=== PATIENT | female | born 1970 | race Caucasian/White ===

== ENCOUNTER 2018-03-22 08:45 | Emergency (ER) | payer MEDICAID, SELFPAY ==
[2018-03-22 08:52] VITALS: BP 112/85; PULSE 96; RESP 16; TEMP 37; O2SAT 99
[2018-03-22] MEDS: predniSONE 20 MG TAB 60 MG PO (09:31)
[2018-03-22] MEDS: Cyclobenzaprine 10 MG TAB PO (09:31)
[2018-03-22] MEDS: Lidocaine 5% Patch 1 PATCH TP (09:34)
[2018-03-22 09:36] LABS: Bilirubin Negative (Negative); Blood Negative (Negative); Clarity Clear; Glucose Negative (Negative); Ketones Negative (Negative); Leukocyte Esterase Trace (Negative); Nitrite Negative (Negative); Specific Gravity <= 1.005 (1.005-1.025); Urobilinogen 0.2 EU/dL (Up TO 0.2)
--- NOTE | 2018-03-22 09:42 | ED.GENADUL_ITS ---
Disposition Clinical Impression: Back pain Disposition: HOME Condition: Stable Instructions: Prednisone (By mouth), Cyclobenzaprine (By mouth), Lidocaine Patch (On the skin), Back Pain (ED) Additional Instructions: Please return immediately to the emergency department if you develop any new or worsening symptoms or if you become otherwise concerned. It is extremely important that you make an appointment to be seen by your primary care doctor within the next 1-2 weeks in follow-up for this visit. Prescriptions: Cyclobenzaprine [Flexeril] 5 mg PO TID PRN #12 tab PRN Reason: Discomfort Lidocaine 5% [Lidoderm 5% Patch] 1 each TP DAILY #9 patch Prednisone 50 mg PO DAILY #4 tablet Referrals: Bimal Dunne MD [[facility] STAFF PHYSICIAN] - Rodrigo Davis [Primary Care Provider] - Josse Jorgensen PT [PHYSICAL THERAPIST] - Medical Decision Making - Lab Data Negative per nursing. Laboratory Tests 03/22/18 09:20 Urine Color Yellow Urine Clarity Clear Urine pH 6.0 Ur Specific [place] <= 1.005 Urine Protein Negative Urine Ketones Negative Urine Blood Negative Urine Nitrite Negative Urine Bilirubin Negative Urine Urobilinogen 0.2 Ur Leukocyte Esterase Trace H Urine RBC 0-2 Urine WBC 10-20 Ur Epithelial Cells Few Urine Crystals Negative Urine Bacteria Many Urine Casts Negative Urine Mucus Negative Ur Culture Indicated? Yes Urine Glucose Negative Results reviewed for labs ordered during visit: Yes - Medical Decision Making Imani Sow is a 47-year-old woman with history of bipolar and no other reported major medical problems presenting to the emergency department complaining of acute worsening of chronic back pain in the past 4 days, radiating into the left leg and worse with movement. On exam patient is very well and nontoxic appearing. There is no motor or sensory deficit of the lower extremities. There is no saddle anesthesia. Diffuse tenderness of the lumbar area without bony or paraspinal focality. There are no risk factors for epidural hematoma or epidural abscess. Exam/history is not consistent with cauda equina syndrome or other cord compression, ovarian torsion, acute aortic etiology, intra-abdominal process, pyelonephritis. Concern for disc herniation versus muscle spasm/strain. Given recent urinary frequency, plan for UA and urine preg. Will obtain postvoid residual. P.o. steroids, p.o. Flexeril, Lidoderm patch. Postvoid residual 21 cc. UA shows white cells and trace leuk esterase without nitrates. Patient reports very mild increase in frequency. Will hold treating for UTI at this point and send culture. Urine negative. Plan for outpatient treatment with prednisone, Flexeril, and Lidoderm patch. Lengthy discussion with patient regarding return to emergency department precautions, prescription medication precautions, and importance of outpatient follow-up with PCP, physical therapy, and orthopedics. Patient is amenable to plan. Patient was placed on care management list for PCP follow-up within 1-2 weeks for reevaluation. History of Present Illness - General Chief complaint: Nk/Back Pain Stated complaint: BACK ACHE Time Seen by Provider: 03/22/18 08:59 Source: patient, RN notes reviewed Mode of arrival: wheelchair Limitations: no limitations - History of Present Illness Initial comments: Imani Sow is a 47-year-old woman with history of bipolar disorder and no other reported major medical problems presenting to the emergency department with back pain. Patient reports that she has had ongoing intermittent left- sided back pain that radiates into her left buttock and the back of her left leg over the past 6 months. She reports that she occasionally will tweak her back, and will have an acute worsening that improves after 1 or 2 days. Patient reports that she tweaked her back 4 days ago during a twisting motion, and has had a worsening of pain since that time. No improvement with Tylenol and ibuprofen at home. Patient reports that pain is worse in her left buttock and radiates into the back of her left thigh. She denies any weakness of the lower extremities or numbness/tingling of the lower extremities. She denies saddle anesthesia. She reports that she feels like she is urinating a little more frequently over the past week but otherwise no change in bladder function. No constipation or change in bowel function. She reports that she has had some very mild left pelvic pain that seems to be related to her back pain as it gets worse when she moves in concordance with her back pain. At rest she does not have any pelvic pain. Back pain is worse when moving from lying down to sitting or sitting to standing. Patient denies any history of IV drug use, no blood thinners. Reports that she is a current everyday smoker, denies alcohol or recreational drug use. No recent illnesses, no recent travel. Has been eating and drinking as usual. - Related Data Acetaminophen [Tylenol Extra Strength] 500 mg PO PRN 09/30/17 LamoTRIgine [LaMICtal] 100 mg PO DAILY tab-cap 09/30/17 QUEtiapine [SEROquel] 50 mg PO BID PRN 12/17/17 Cyclobenzaprine [Flexeril] 5 mg PO TID PRN #12 tab 03/22/18 Lidocaine 5% [Lidoderm 5% Patch] 1 each TP DAILY #9 patch 03/22/18 Prednisone 50 mg PO DAILY #4 tablet 03/22/18 Allergies Allergy/AdvReac Type Severity Reaction Status Date / Time codeine Allergy Intermediate HIVES Unverified 03/22/18 08:57 Review of Systems Constitutional: denies: fever Eyes: denies: eye pain ENT: denies: ear pain, throat pain, dental pain Respiratory: denies: cough, shortness of breath Cardiovascular: denies: chest pain Endocrine: denies: increased hunger, increased thirst Gastrointestinal: denies: abdominal pain, nausea, vomiting, diarrhea Musculoskeletal: back pain. denies: arthralgia, myalgia Skin: denies: rash Neurological: denies: headache, weakness, numbness Past Medical History - Past Medical History Medical history: no medical history. denies: diabetes Surgical history: - Social History Smoking status: current everyday smoker Alcohol use: none Drug use: none General Exam - General Limitations: no limitations General appearance: alert, other (Well and nontoxic appearing, conversing normally, appears uncomfortable with movement.) - Head Head exam: Present: atraumatic, normocephalic, normal inspection - Eye Eye exam: Absent: scleral icterus, conjunctival injection Pupils: Absent: irregular, unequal, miosis, mydriatic - ENT ENT exam: Present: mucous membranes moist - Neck Neck exam: Present: normal inspection - Respiratory Respiratory exam: Present: normal lung sounds bilaterally. Absent: respiratory distress - Cardiovascular Cardiovascular Exam: Present: regular rate, normal rhythm, normal heart sounds - GI/Abdominal GI/Abdominal exam: Present: soft, other (No pelvic tenderness to palpation). Absent: distended, tenderness, mass - Extremities Exam Extremities exam: Present: normal inspection. Absent: pedal edema, calf tenderness - Back Exam Back exam: Present: normal inspection, tenderness (Diffuse tenderness of the lumbar area, over the vertebrae and paraspinals bilaterally. There is no focality. There is no edema or overlying skin changes. No deformity or step- offs.). Absent: rash noted - Neurological Exam Neurological exam: Present: alert, normal gait (Slow but otherwise normal). Absent: altered, motor sensory deficit (Motor 5 out of 5 bilateral legs. Sensation intact bilateral legs.) - Psychiatric Psychiatric exam: Present: normal affect, normal mood - Skin Skin exam: Present: warm, dry, intact, normal color. Absent: rash Course Vital Signs - 24 hr 03/22/18 08:52 Temperature 37.0 C Pulse 96 H Respiratory 16 Rate Blood Pressure 112/85 Pulse Oximetry 99
[2018-03-22 09:46] LABS: Bacteria Many HPF (Negative); C & S Indicated? Yes; Casts Negative LPF (Negative); Crystals Negative HPF (Negative); Epithelial Cells Few HPF (Negative); Mucus Negative (Negative); RBC 0-2 (0-2)
[2018-03-22 09:59] VITALS: BP 112/78; PULSE 70; RESP 16; TEMP 36.8; O2SAT 97
[2018-03-22 10:09] VITALS: BP 112/78; PULSE 70; RESP 16; TEMP 36.8; O2SAT 97
--- NOTE | 2018-03-23 08:52 | PDOC.ERCMPRO ---
Care Management Progress Note 03/23-Dr. Phi Phelps requested assistance with a PCP (Susan) f/u in 1-2 weeks for back pain. Referral faxed to [facility] this am.
--- NOTE | 2018-03-23 09:00 | CMPROGNOTE_ITS ---
Care Management Progress Note 03/23-Dr. Phi Phelps requested assistance with a PCP (Susan) f/u in 1-2 weeks for back pain. Referral faxed to [facility] this am.
--- NOTE | 2018-03-26 07:46 | ED.FU.B_ITS ---
- Follow Up Follow Up Plan: 03/25/2018 --I received urine culture result noting > 100,000 Klebsiella pneumonia, sensitive to Bactrim. I called and spoke with the patient. She noted that she continued to have back pain. She denies dysuria but does note that she may have been urinating more than usual. Plan to start treatment with Bactrim for possible pyelonephritis. Plan discussed with the patient requests [facility] [place]. Prescription for Bactrim 1 tab twice daily 14 days called to pharmacy. Patient was encouraged to follow-up with her primary care physician and return to the ER should she have any worsening or new concerning symptoms. Patient verbalized understanding of plan and importance of completion of antibiotic course and timely outpatient follow-up.
== END 2018-03-22 10:09 | disposition home or self-care (01) ==
PROVIDERS: Emergency Provider Student in an Organized Health Care Education/Training Program; PCP Specialist/Technologist Athletic Trainer
DX: M54.5 Low back pain (principal); X50.9XXA Other and unspecified overexertion or strenuous movements or postures, initial encounter
CPT/HCPCS: 81025; 87077; 99283; 81003; 81015; 87086; 87186; J7512

== ENCOUNTER → 2018-04-06 01:28 | Outpatient (CLI) | payer MEDICAID, SELFPAY ==
--- NOTE | 2018-04-06 08:26 | DI.RAD_ITS ---
SYMPTOM/DIAGNOSIS: BACK PAIN WITH RADICULOPATHY M54.16 LUMBAR SPINE: Vertebral bodies are well maintained in height. There is mild disc space narrowing at L4-5 and L5-S1. There are small end plate osteophytes. No spondylolysis or spondylolisthesis seen. There is mild calcification in the aorta which is normal in diameter. IMPRESSION: Degenerative disc changes at L4-5 and L5-S1.
== END ==
LOC: DI 01:08 → ER 06-16 11:45 → DI 06-16 11:46
PROVIDERS: PCP Specialist/Technologist Athletic Trainer; Visit Provider Specialist/Technologist Athletic Trainer
DX: M54.16 Radiculopathy, lumbar region (principal); M54.5 Low back pain; M51.17 Intervertebral disc disorders with radiculopathy, lumbosacral region
CPT/HCPCS: 72110

== ENCOUNTER 2018-05-08 12:46 | Emergency (ER) | payer MEDICAID, SELFPAY ==
[2018-05-08 13:10] VITALS: BP 118/76; PULSE 80; RESP 16; TEMP 37; O2SAT 98
--- NOTE | 2018-05-08 13:49 | W.ED.GENAD ---
Discharge Plan Disposition Patient Disposition: HOME Condition: Stable Discharge Details Chief Complaint: DentalOral Clinical Impression: Dental infection, Left facial swelling Primary Care Provider: Rodrigo Davis ED Provider: Teressa Jones Home Meds and New Rx's Prescriptions: New penicillin V potassium 500 mg tablet 500 mg PO QID 7 Days Qty: 28 RF: 0 Continue acetaminophen [Tylenol Extra Strength] 500 MG tablet 1,000 mg PO PRN RF: 0 lamotrigine [Lamictal] 100 MG tablet 100 mg PO DAILY RF: 0 quetiapine [Seroquel] 50 MG tablet 50 mg PO BID PRNRF: 0 ibuprofen [Ibuprofen IB] 200 mg Tablet 400 mg PO PRN PRNRF: 0 Discharge Instructions Instructions: Dental Abscess (ED) Additional Instructions: You were given instructions regarding a dental abscess. You do not have a dental abscess noted on exam today but you were given instructions regarding signs to look for this. If you develop persistent fevers that do not improve with Motrin or Tylenol, if you are unable eat or drink, if you are unable to open or closure jaw or you have any other worsening or new concerning symptoms, return immediately to the emergency department. Follow-up with your scheduled appointment at [facility] on Thursday. Discharge Data Discharge Date/Time-TO BE ENTERED AT DEPARTURE: 05/08/18 14:50 Discharge Physician: Teressa Jones Medical Decision Making 48-year-old female presents with left upper dental pain times 2 weeks after fall downstairs hitting left upper tooth on cement causing a dental fracture, and with left-sided facial swelling and pain over the past 2 days. Admits to fever of 103 last night. Last dose of Tylenol Motrin 7 hours ago. She had also complained of intermittent cloudy vision in left eye as well as cramping in legs which she attributes to low potassium from not eating due to dental pain over the past few days. Vitals within normal limits. Patient afebrile now. Patient appears nontoxic and in no acute distress. She has majority of tooth missing and tenderness to palpation of base of tooth #10 or 11 without evidence of abscess. She has mild to moderate facial edema and tenderness of the infraorbital and maxillary region. No submandibular swelling, no, trismus, no drooling, no signs of arnaud's angina, no facial ecchymoses or signs of facial trauma. Normal external L eye exam. No pain with EOMI, PERRL. NV intact b/l LE. Moves all extremities spontaneously. Normal gait. Visual acuity OS 20/50, OD 20/40, OU 20/30. Suspect most likely dental infection but no obvious abscess. Her L eye visual symptoms may be due to mild L infraorbital swelling but there is no evidence of entrapment or orbital cellulitis and no meningeal signs. She states she is mainly concerned about a dental infection and wanting antibiotics. A dose of penicillin was given here. Patient was offered lab work and imaging but declines at this time. She has a follow-up appointment with [facility] on Thursday morning. She is instructed to keep this appointment for follow-up and to return immediately to the emergency department with any worsening or new concerning symptoms such as persistent fevers, inability to swallow, inability to open or close her jaw, or any other concerns. HPI General Mode of arrival: ambulatory. Date/Time Provider Initiated Documentation: 05/08/18 13:36. Limitations to Documentation: no limitations. Information obtained by: patient. HPI Narrative: Patient is a 48 old female who presents with dental pain times 2 weeks and left-sided facial swelling since yesterday. Patient states she fell down 3 stairs 2 weeks ago hitting her left upper jaw and tooth on a piece of cement, fracturing her left upper tooth. She states since then she has had some dental pain, and over the past day developed left-sided facial swelling and pain. She has been able to eat and drink. She states last night she had a temperature of 103. She states she last took Tylenol Motrin at 7 AM this morning, approximately 7 hours ago. States she feels like the swelling in the left side of her face is causing cloudy vision in her left eye. She also states of the past few days she has not eating or drinking much due to her dental pain and now feels like her legs are cramping like having low potassium. Past medical history: Bipolar disorder, anxiety Surgical history: Social history: Smokes tobacco, drinks beer, denies drugs Medications: See list Allergies: Codeine Related Data Home Medications Medication Instructions Recorded Confirmed acetaminophen [Tylenol Extra 1,000 mg PO PRN 09/30/17 05/08/18 Strength] lamotrigine [Lamictal] 100 mg PO DAILY tab-cap 09/30/17 05/08/18 quetiapine [Seroquel] 50 mg PO BID PRN 12/17/17 05/08/18 ibuprofen [Ibuprofen IB] 400 mg PO PRN PRN 05/08/18 05/08/18 penicillin V potassium 500 mg PO QID 7 Days #28 tab 05/08/18 Previous Rx's Medication Instructions Recorded penicillin V potassium 500 mg PO QID 7 Days #28 tab 05/08/18 Allergies Allergy/AdvReac Type Severity Reaction Status Date / Time codeine Allergy Intermediate HIVES Unverified 05/08/18 13:23 General Stated Complaint: DentalOral NOLAN: 3 Review of Systems Review of Systems All systems reviewed & are unremarkable except as noted in HPI and below Constitutional Denies chills, Denies excessive sweating, Denies fatigue, Denies fever(s), Denies weakness and Denies weight loss Eyes Reports system reviewed and no additional complaints, except as docu and Reports blurry vision ENT Reports dental pain, Denies vertigo, Denies dizziness, Denies otalgia, Denies nasal congestion, Denies sore throat and Denies throat swelling Cardiovascular Denies chest pain, Denies syncope, Denies rapid heart rate and Denies dyspnea Respiratory Denies dyspnea Gastrointestinal Denies abdominal pain, Denies diarrhea and Denies vomiting Genitourinary Denies hematuria, Denies dysuria and Denies flank pain Musculoskeletal Denies back pain and Denies joint swelling Integumentary/Breasts Denies lesions and Denies rash Neurologic Denies behavioral changes, Denies confusion, Denies vertigo, Denies dizziness, Denies syncope and Denies weakness Psychiatric Denies behavioral changes, Denies confusion and Denies depression Endocrine Denies excessive sweating and Denies fatigue Hematologic/Lymphatic Denies easy bruising and Denies lymphadenopathy Allergic/Immunologic Denies throat swelling PFSH Family History Mother Lung cancer Cancer of kidney Father Heart disease Myocardial infarction Grandfather Diabetes Medical History Anxiety Bipolar disorder Smoker Social History Smoking/Tobacco Use Status: Current-Occasional Surgical History section (10/27/13) Exam Const General: cooperative and healthy appearing Orientation: alert and awake [facility] Head: normal to inspection Ears: hearing grossly normal bilaterally, external ears normal and TM's normal bilaterally General nose exam: external nose normal Face and sinus: other (Mild left-sided facial edema and tenderness palpation extending from the left infraorbital region to the left maxillary region.) Teeth and gingiva: other (Dental fracture and tenderness to palpation noted at tooth #10 or 11 with majority of tooth missing and base still present. Extensive dental caries throughout. Multiple teeth missing. No dental abscess noted.) Eyes General: appearance normal, both eyes and all related structures Eyelids: eyelids normal Pupils: PERRL EOM: EOM intact bilaterally Neck Neck: normal visual inspection and No submandibular swelling Lymphatic: no lymphadenopathy noted Chest Chest: normal inspection of the chest Resp Effort & Inspection: normal respiratory effort and able to speak in complete sentences Auscultation: clear to auscultation bilaterally Cardio Rate: regular rate Rhythm: regular rhythm GI Inspection: normal to inspection Skin General skin exam: no rashes or lesions noted Neuro General: alert and awake Cognition: normal cognition Speech: speech normal Gait: normal gait Motor: muscle tone normal throughout Sensory Exam: no sensory deficits noted Extrem General: normal to inspection, full ROM and normal capillary refill Psych Appearance: grossly normal Mental Status: mental status grossly normal Speech and Movement: speech and movement normal Affect: normal affect Thought Process: normal Course Vital Signs Temperature 98.6 F 05/08/18 13:10 Pulse 80 05/08/18 13:10 Respiratory Rate 16 05/08/18 13:10 Blood Pressure 118/76 05/08/18 13:10 Pulse Oximetry 98 05/08/18 13:10 Temperature 98.6 F 05/08/18 13:10 Temperature Source Skin 05/08/18 13:10 Pulse 80 05/08/18 13:10 Respiratory Rate 16 05/08/18 13:10 Respiratory Effort 05/08/18 13:25 Blood Pressure 118/76 05/08/18 13:10 Pulse Oximetry 98 05/08/18 13:10 Oxygen Delivery Method Room Air 05/08/18 13:10 Oxygen Flow Rate 0 05/08/18 13:10 Pain Level 7 05/08/18 13:26
--- NOTE | 2018-05-08 13:58 | ED.GENADUL_ITS ---
Discharge Plan Disposition Patient Disposition: HOME Condition: Stable Discharge Details Chief Complaint: DentalOral Clinical Impression: Dental infection, Left facial swelling Primary Care Provider: Rodrigo Davis ED Provider: Teressa Jones Home Meds and New Rx's Prescriptions: New penicillin V potassium 500 mg tablet 500 mg PO QID 7 Days Qty: 28 RF: 0 Continue acetaminophen [Tylenol Extra Strength] 500 MG tablet 1,000 mg PO PRN RF: 0 lamotrigine [Lamictal] 100 MG tablet 100 mg PO DAILY RF: 0 quetiapine [Seroquel] 50 MG tablet 50 mg PO BID PRNRF: 0 ibuprofen [Ibuprofen IB] 200 mg Tablet 400 mg PO PRN PRNRF: 0 Discharge Instructions Instructions: Dental Abscess (ED) Additional Instructions: You were given instructions regarding a dental abscess. You do not have a dental abscess noted on exam today but you were given instructions regarding signs to look for this. If you develop persistent fevers that do not improve with Motrin or Tylenol, if you are unable eat or drink, if you are unable to open or closure jaw or you have any other worsening or new concerning symptoms, return immediately to the emergency department. Follow-up with your scheduled appointment at [facility] on Thursday. Discharge Data Discharge Date/Time-TO BE ENTERED AT DEPARTURE: 05/08/18 14:50 Discharge Physician: Teressa Jones Medical Decision Making 48-year-old female presents with left upper dental pain times 2 weeks after fall downstairs hitting left upper tooth on cement causing a dental fracture, and with left-sided facial swelling and pain over the past 2 days. Admits to fever of 103 last night. Last dose of Tylenol Motrin 7 hours ago. She had also complained of intermittent cloudy vision in left eye as well as cramping in legs which she attributes to low potassium from not eating due to dental pain over the past few days. Vitals within normal limits. Patient afebrile now. Patient appears nontoxic and in no acute distress. She has majority of tooth missing and tenderness to palpation of base of tooth #10 or 11 without evidence of abscess. She has mild to moderate facial edema and tenderness of the infraorbital and maxillary region. No submandibular swelling, no, trismus, no drooling, no signs of arnaud' s angina, no facial ecchymoses or signs of facial trauma. Normal external L eye exam. No pain with EOMI, PERRL. NV intact b/l LE. Moves all extremities spontaneously. Normal gait. Visual acuity OS 20/50, OD 20/40, OU 20/30. Suspect most likely dental infection but no obvious abscess. Her L eye visual symptoms may be due to mild L infraorbital swelling but there is no evidence of entrapment or orbital cellulitis and no meningeal signs. She states she is mainly concerned about a dental infection and wanting antibiotics. A dose of penicillin was given here. Patient was offered lab work and imaging but declines at this time. She has a follow-up appointment with [facility] on Thursday morning. She is instructed to keep this appointment for follow-up and to return immediately to the emergency department with any worsening or new concerning symptoms such as persistent fevers, inability to swallow, inability to open or close her jaw, or any other concerns. HPI General Mode of arrival: ambulatory . Date/Time Provider Initiated Documentation: 05/08/18 13:36 . Limitations to Documentation: no limitations . Information obtained by: patient . HPI Narrative: Patient is a 48 old female who presents with dental pain times 2 weeks and left-sided facial swelling since yesterday. Patient states she fell down 3 stairs 2 weeks ago hitting her left upper jaw and tooth on a piece of cement, fracturing her left upper tooth. She states since then she has had some dental pain, and over the past day developed left-sided facial swelling and pain. She has been able to eat and drink. She states last night she had a temperature of 103. She states she last took Tylenol Motrin at 7 AM this morning, approximately 7 hours ago. States she feels like the swelling in the left side of her face is causing cloudy vision in her left eye. She also states of the past few days she has not eating or drinking much due to her dental pain and now feels like her legs are cramping like having low potassium. Past medical history: Bipolar disorder, anxiety Surgical history: Social history: Smokes tobacco, drinks beer, denies drugs Medications: See list Allergies: Codeine Related Data Home Medications Medication Instructions Recorded Confirmed acetaminophen [Tylenol Extra 1,000 mg PO PRN 09/30/17 05/08/18 Strength] lamotrigine [Lamictal] 100 mg PO DAILY tab-cap 09/30/17 05/08/18 quetiapine [Seroquel] 50 mg PO BID PRN 12/17/17 05/08/18 ibuprofen [Ibuprofen IB] 400 mg PO PRN PRN 05/08/18 05/08/18 penicillin V potassium 500 mg PO QID 7 Days #28 tab 05/08/18 Previous Rx's Medication Instructions Recorded penicillin V potassium 500 mg PO QID 7 Days #28 tab 05/08/18 Allergies Allergy/AdvReac Type Severity Reaction Status Date / Time codeine Allergy Intermediate HIVES Unverified 05/08/18 13:23 General Stated Complaint: DentalOral NOLAN: 3 Review of Systems Review of Systems All systems reviewed & are unremarkable except as noted in HPI and below Constitutional Denies chills, Denies excessive sweating, Denies fatigue, Denies fever(s), Denies weakness and Denies weight loss Eyes Reports system reviewed and no additional complaints, except as docu and Reports blurry vision ENT Reports dental pain, Denies vertigo, Denies dizziness, Denies otalgia, Denies nasal congestion, Denies sore throat and Denies throat swelling Cardiovascular Denies chest pain, Denies syncope, Denies rapid heart rate and Denies dyspnea Respiratory Denies dyspnea Gastrointestinal Denies abdominal pain, Denies diarrhea and Denies vomiting Genitourinary Denies hematuria, Denies dysuria and Denies flank pain Musculoskeletal Denies back pain and Denies joint swelling Integumentary/Breasts Denies lesions and Denies rash Neurologic Denies behavioral changes, Denies confusion, Denies vertigo, Denies dizziness, Denies syncope and Denies weakness Psychiatric Denies behavioral changes, Denies confusion and Denies depression Endocrine Denies excessive sweating and Denies fatigue Hematologic/Lymphatic Denies easy bruising and Denies lymphadenopathy Allergic/Immunologic Denies throat swelling PFSH Family History Mother Lung cancer Cancer of kidney Father Heart disease Myocardial infarction Grandfather Diabetes Medical History Anxiety Bipolar disorder Smoker Social History Smoking/Tobacco Use Status: Current-Occasional Surgical History section (10/27/13) Exam Const General: cooperative and healthy appearing Orientation: alert and awake [facility] Head: normal to inspection Ears: hearing grossly normal bilaterally, external ears normal and TM's normal bilaterally General nose exam: external nose normal Face and sinus: other (Mild left-sided facial edema and tenderness palpation extending from the left infraorbital region to the left maxillary region.) Teeth and gingiva: other (Dental fracture and tenderness to palpation noted at tooth #10 or 11 with majority of tooth missing and base still present. Extensive dental caries throughout. Multiple teeth missing. No dental abscess noted.) Eyes General: appearance normal, both eyes and all related structures Eyelids: eyelids normal Pupils: PERRL EOM: EOM intact bilaterally Neck Neck: normal visual inspection and No submandibular swelling Lymphatic: no lymphadenopathy noted Chest Chest: normal inspection of the chest Resp Effort & Inspection: normal respiratory effort and able to speak in complete sentences Auscultation: clear to auscultation bilaterally Cardio Rate: regular rate Rhythm: regular rhythm GI Inspection: normal to inspection Skin General skin exam: no rashes or lesions noted Neuro General: alert and awake Cognition: normal cognition Speech: speech normal Gait: normal gait Motor: muscle tone normal throughout Sensory Exam: no sensory deficits noted Extrem General: normal to inspection, full ROM and normal capillary refill Psych Appearance: grossly normal Mental Status: mental status grossly normal Speech and Movement: speech and movement normal Affect: normal affect Thought Process: normal Course Vital Signs Temperature 98.6 F 05/08/18 13:10 Pulse 80 05/08/18 13:10 Respiratory Rate 16 05/08/18 13:10 Blood Pressure 118/76 05/08/18 13:10 Pulse Oximetry 98 05/08/18 13:10 Temperature 98.6 F 05/08/18 13:10 Temperature Source Skin 05/08/18 13:10 Pulse 80 05/08/18 13:10 Respiratory Rate 16 05/08/18 13:10 Respiratory Effort 05/08/18 13:25 Blood Pressure 118/76 05/08/18 13:10 Pulse Oximetry 98 05/08/18 13:10 Oxygen Delivery Method Room Air 05/08/18 13:10 Oxygen Flow Rate 0 05/08/18 13:10 Pain Level 7 05/08/18 13:26
[2018-05-08] MEDS: Penicillin V POTASSIUM 500 MG TAB PO (14:14)
[2018-05-08 14:27] VITALS: BP 103/79; PULSE 76; RESP 14; TEMP 37; O2SAT 100
== END 2018-05-08 14:50 | disposition home or self-care (01) ==
PROVIDERS: Emergency Provider Physician Assistant; PCP Specialist/Technologist Athletic Trainer
DX: R60.0 Localized edema (principal); K04.7 Periapical abscess without sinus; S02.5XXA Fracture of tooth (traumatic), initial encounter for closed fracture; W10.8XXA Fall (on) (from) other stairs and steps, initial encounter
CPT/HCPCS: 99283

== ENCOUNTER 2018-06-16 08:56 | Emergency (ER) | payer MEDICAID, SELFPAY ==
[2018-06-16 09:02] VITALS: BP 107/81; PULSE 102; RESP 14; TEMP 36.7; O2SAT 100
--- NOTE | 2018-06-16 09:16 | NUR.NOTE ---
Provider is at the bedside.
[2018-06-16] MEDS: Cyclobenzaprine 10 MG TAB PO (09:26)
[2018-06-16] MEDS: Ketorolac 30 MG/ML VIAL IM (09:27)
--- NOTE | 2018-06-16 09:28 | W.ED.GENAD ---
Discharge Plan Disposition Patient Disposition: HOME Condition: Good Discharge Details Chief Complaint: Orthopedic Clinical Impression: Sciatic radiculitis Primary Care Provider: Rodrigo Davis ED Provider: Corey Potts Mclain Meds and New Rx's Prescriptions: New cyclobenzaprine 10 mg tablet 10 mg PO TID PRN (Reason: sciatica) Qty: 10 RF: 0 No Action acetaminophen [Tylenol Extra Strength] 500 MG tablet 1,000 mg PO PRN RF: 0 lamotrigine [Lamictal] 100 MG tablet 100 mg PO DAILY RF: 0 quetiapine [Seroquel] 50 MG tablet 50 mg PO BID PRNRF: 0 ibuprofen [Ibuprofen IB] 200 mg Tablet 400 mg PO PRN PRNRF: 0 nabumetone 750 mg Tablet 750 mg PO BID RF: 0 hydroxyzine HCl 50 mg Tablet 50 mg PO TID RF: 0 zolpidem [Ambien] 5 mg Tablet 5 mg PO HS RF: 0 diphenhydramine-acetaminophen [Tylenol PM Extra Strength] 25-500 mg Tablet 25 - 500 mg PO HS PRN PRNRF: 0 Discharge Instructions Instructions: Sciatica (ED), Piriformis Syndrome (ED) Stand Alone Forms: Physical Therapy Referral Referrals: Rodrigo Davis [Primary Care Provider] - Return if symptoms worsen Discharge Data Discharge Date/Time-TO BE ENTERED AT DEPARTURE: 06/16/18 12:26 Medical Decision Making Presentation, history and exam consistent with sciatica. We will x-ray low back, hip and knee. Medicate with flexeril and toradol. Will send to PT as well. Patient agreeable to plan. Pt refused to lay flat for x-rays because of the pain. Percocet ordered. She tolerated Percocet but was still restless for x-ray. I apprised her of the benign x-rays. I prescribed her flexeril and advised to use lidocaine patches. She tells me she has some at home. Provided PT referral. She apparently was upset I did not give her opiates for back pain. I explained to her that ibuprofen is the best treatment for back pain. Unfortunately she voiced her to the nurse that I was not helpful and something about drug abusers ruin it for everybody. Pt clearly exhibiting drug seeking behaviors. Advised to return if symptoms worsen otherwise with PT and PCP. Imaging Data Radiologic Study: Imaging: X-Ray My impression: No acute pathology seen on x-rays. Radiologist's impression: RIGHT KNEE: Three views were obtained. No fracture seen. RIGHT HIP AND PELVIS: Two views were obtained. There are minimal degenerative changes of the hip. No evidence of fracture or dislocation. LUMBOSACRAL SPINE: Six views were obtained. There is a mild right convex lumbar scoliosis. There is narrowing of the intervertebral disc spaces at L4-5 and L5-S1, consistent with disc degeneration. Mild hypertrophic spurring of the vertebral endplates and facet joints noted throughout the lumbar region. No evidence of acute fracture. CONCLUSION: No evidence of acute injury. Degenerative changes as described above. HPI General Date/Time Provider Initiated Documentation: 06/16/18 09:04. Limitations to Documentation: no limitations. Information obtained by: patient and family. History of Present Illness 48 year old F presents to the emergency department with the chief complaint of right hip/leg pain, HPI Narrative: 48 y/o female here with c/o right back, hip, and leg pain. She and her report a couple falls over the last couple months. The most recent was approximately one month ago. Since that time she has had worsening pain in the right hip and leg. She tells me the pain is so bad she can not extend her leg at the knee. She feels numbness, pins and needles radiating down to the foot. She believes she broke three of her toes during this fall and chipped part of her tooth. She did not seek medical attention after this fall. She reports falling down last few steps at work. No LOC. Her reports significant bruising and swelling to the right buttock/hip from previous fall a month prior to that. She anxious from the pain. She did have a x-ray of her lumbar spine two months ago from pcp. She tells me this around the time she fell the first time. Related Data Home Medications Medication Instructions Recorded Confirmed acetaminophen [Tylenol Extra 1,000 mg PO PRN 09/30/17 06/16/18 Strength] lamotrigine [Lamictal] 100 mg PO DAILY tab-cap 09/30/17 06/16/18 quetiapine [Seroquel] 50 mg PO BID PRN 12/17/17 06/16/18 ibuprofen [Ibuprofen IB] 400 mg PO PRN PRN 05/08/18 06/16/18 cyclobenzaprine 10 mg PO TID PRN #10 tab 06/16/18 diphenhydramine-acetaminophen 25 - 500 mg PO HS PRN PRN 06/16/18 06/16/18 [Tylenol PM Extra Strength] hydroxyzine HCl 50 mg PO TID 06/16/18 06/16/18 nabumetone 750 mg PO BID 06/16/18 06/16/18 zolpidem [Ambien] 5 mg PO HS 06/16/18 06/16/18 Previous Rx's Medication Instructions Recorded cyclobenzaprine 10 mg PO TID PRN #10 tab 06/16/18 Allergies Allergy/AdvReac Type Severity Reaction Status Date / Time codeine Allergy Intermediate HIVES Unverified 05/08/18 13:23 General Stated Complaint: Orthopedic NOLAN: 4 Review of Systems Eyes Reports system reviewed and no additional complaints, except as docu ENT Reports system reviewed and no additional complaints, except as docu Cardiovascular Reports system reviewed and no additional complaints, except as docu Respiratory Reports system reviewed and no additional complaints, except as docu Gastrointestinal Reports system reviewed and no additional complaints, except as docu Genitourinary Reports system reviewed and no additional complaints, except as docu Musculoskeletal Reports abnormal gait, Reports back pain, Reports limited range of motion (right leg), Reports numbness and Reports radiating pain into limb (right) Comments: Pain radiating down right leg Neurologic Reports system reviewed and no additional complaints, except as docu, Reports abnormal gait and Reports numbness Psychiatric Reports system reviewed and no additional complaints, except as docu Hematologic/Lymphatic Reports system reviewed and no additional complaints, except as docu Exam Const General: cooperative, healthy appearing, no acute distress and anxious (from the pain laying on left hip for comfort. ) Nutritional Appearance: thin Orientation: alert, awake and oriented x3 HENMT Head: normal to inspection and atraumatic Ears: hearing grossly normal bilaterally and external ears normal General nose exam: external nose normal and nares normal Mouth: oral mucosae normal, lip normal and tongue normal Teeth image: 1. missing. Tooth removed after fall. Eyes General: appearance normal, both eyes and all related structures Neck Neck: normal visual inspection, full ROM and supple Thyroid: nontender Resp Effort & Inspection: normal respiratory effort Cardio Rate: regular rate Back/Spine/Pelvis Back: No erythema, No ecchymosis, back tenderness (low back R>L) and No Medeiros-Macedo sign present Cervical Spine: normal cervical lordosis and cervical ROM normal Thoracic/Lumbar Spine: thoracic and lumbar spine normal to inspection, thoraco-lumbar ROM normal and straight leg raise positive Pelvis: no buttock ecchymosis, no buttock tenderness, no buttock swelling, sciatic notch tenderness on the right and tenderness over symphysis pubis Sacroiliac joints: on the right Sacrum: no ecchymosis Coccyx: no swelling Skin General skin exam: no rashes or lesions noted Neuro General: alert, awake, oriented x3 and moves all extremities Extrem General: normal to inspection, full ROM and normal capillary refill Right lower extremity: normal to inspection, full ROM (passivley with pain. Rsting position is laying on left side with leg flexed. ), normal capillary refill, no joint enlargement and hip/thigh Details: tenderness (Pain primarily down sciatic notch, but painful to touch to the entire leg. ) Location: of the hip (Right) Location: posteriorly and over the greater trochanter, of the proximal upper leg (pain) Location: medially, laterally, anteriorly, posteriorly, anteromedially, anterolaterally, posteromedially and posterolaterally and of the mid upper leg (pain) Location: medially, laterally, anteriorly, posteriorly, anteromedially, anterolaterally, posteromedially and posterolaterally Ankle/foot/toe images: 1. Mild brusing but otherwise normal foot and toe exam. Good CSMT. Course Vital Signs Temperature 36.7 C 06/16/18 09:02 Pulse 102 H 06/16/18 09:02 Respiratory Rate 14 06/16/18 09:02 Blood Pressure 107/81 06/16/18 09:02 Pulse Oximetry 100 06/16/18 09:02 Temperature 36.7 C 06/16/18 09:02 Temperature Source Temporal Artery Scan 06/16/18 09:02 Pulse 102 H 06/16/18 09:02 Respiratory Rate 14 06/16/18 09:02 Respiratory Effort 06/16/18 09:07 Blood Pressure 107/81 06/16/18 09:02 Blood Pressure Position Sitting 06/16/18 09:02 Pulse Oximetry 100 06/16/18 09:02 Oxygen Delivery Method Room Air 06/16/18 09:02 Oxygen Flow Rate 0 06/16/18 09:02 Pain Level 10 06/16/18 09:27
--- NOTE | 2018-06-16 09:47 | ED.GENADUL_ITS ---
Discharge Plan Disposition Patient Disposition: HOME Condition: Good Discharge Details Chief Complaint: Orthopedic Clinical Impression: Sciatic radiculitis Primary Care Provider: Rodrigo Davis ED Provider: Corey Potts [place] Meds and New Rx's Prescriptions: New cyclobenzaprine 10 mg tablet 10 mg PO TID PRN (Reason: sciatica) Qty: 10 RF: 0 No Action acetaminophen [Tylenol Extra Strength] 500 MG tablet 1,000 mg PO PRN RF: 0 lamotrigine [Lamictal] 100 MG tablet 100 mg PO DAILY RF: 0 quetiapine [Seroquel] 50 MG tablet 50 mg PO BID PRNRF: 0 ibuprofen [Ibuprofen IB] 200 mg Tablet 400 mg PO PRN PRNRF: 0 nabumetone 750 mg Tablet 750 mg PO BID RF: 0 hydroxyzine HCl 50 mg Tablet 50 mg PO TID RF: 0 zolpidem [Ambien] 5 mg Tablet 5 mg PO HS RF: 0 diphenhydramine-acetaminophen [Tylenol PM Extra Strength] 25-500 mg Tablet 25 - 500 mg PO HS PRN PRNRF: 0 Discharge Instructions Instructions: Sciatica (ED), Piriformis Syndrome (ED) Stand Alone Forms: Physical Therapy Referral Referrals: Rodrigo Davis [Primary Care Provider] - Return if symptoms worsen Discharge Data Discharge Date/Time-TO BE ENTERED AT DEPARTURE: 06/16/18 12:26 Medical Decision Making Presentation, history and exam consistent with sciatica. We will x-ray low back , hip and knee. Medicate with flexeril and toradol. Will send to PT as well. Patient agreeable to plan. Pt refused to lay flat for x-rays because of the pain. Percocet ordered. She tolerated Percocet but was still restless for x-ray. I apprised her of the benign x-rays. I prescribed her flexeril and advised to use lidocaine patches. She tells me she has some at home. Provided PT referral. She apparently was upset I did not give her opiates for back pain. I explained to her that ibuprofen is the best treatment for back pain. Unfortunately she voiced her to the nurse that I was not helpful and something about drug abusers ruin it for everybody. Pt clearly exhibiting drug seeking behaviors. Advised to return if symptoms worsen otherwise with PT and PCP. Imaging Data Radiologic Study: Imaging: X-Ray My impression: No acute pathology seen on x-rays. Radiologist's impression: RIGHT KNEE: Three views were obtained. No fracture seen. RIGHT HIP AND PELVIS: Two views were obtained. There are minimal degenerative changes of the hip. No evidence of fracture or dislocation. LUMBOSACRAL SPINE: Six views were obtained. There is a mild right convex lumbar scoliosis. There is narrowing of the intervertebral disc spaces at L4-5 and L5-S1, consistent with disc degeneration. Mild hypertrophic spurring of the vertebral endplates and facet joints noted throughout the lumbar region. No evidence of acute fracture. CONCLUSION: No evidence of acute injury. Degenerative changes as described above. HPI General Date/Time Provider Initiated Documentation: 06/16/18 09:04 . Limitations to Documentation: no limitations . Information obtained by: patient and family . History of Present Illness 48 year old F presents to the emergency department with the chief complaint of right hip/leg pain, HPI Narrative: 48 y/o female here with c/o right back, hip, and leg pain. She and her report a couple falls over the last couple months. The most recent was approximately one month ago. Since that time she has had worsening pain in the right hip and leg. She tells me the pain is so bad she can not extend her leg at the knee. She feels numbness, pins and needles radiating down to the foot. She believes she broke three of her toes during this fall and chipped part of her tooth. She did not seek medical attention after this fall. She reports falling down last few steps at work. No LOC. Her reports significant bruising and swelling to the right buttock/hip from previous fall a month prior to that. She anxious from the pain. She did have a x-ray of her lumbar spine two months ago from pcp. She tells me this around the time she fell the first time. Related Data Home Medications Medication Instructions Recorded Confirmed acetaminophen [Tylenol Extra 1,000 mg PO PRN 09/30/17 06/16/18 Strength] lamotrigine [Lamictal] 100 mg PO DAILY tab-cap 09/30/17 06/16/18 quetiapine [Seroquel] 50 mg PO BID PRN 12/17/17 06/16/18 ibuprofen [Ibuprofen IB] 400 mg PO PRN PRN 05/08/18 06/16/18 cyclobenzaprine 10 mg PO TID PRN #10 tab 06/16/18 diphenhydramine-acetaminophen 25 - 500 mg PO HS PRN PRN 06/16/18 06/16/18 [Tylenol PM Extra Strength] hydroxyzine HCl 50 mg PO TID 06/16/18 06/16/18 nabumetone 750 mg PO BID 06/16/18 06/16/18 zolpidem [Ambien] 5 mg PO HS 06/16/18 06/16/18 Previous Rx's Medication Instructions Recorded cyclobenzaprine 10 mg PO TID PRN #10 tab 06/16/18 Allergies Allergy/AdvReac Type Severity Reaction Status Date / Time codeine Allergy Intermediate HIVES Unverified 05/08/18 13:23 General Stated Complaint: Orthopedic NOLAN: 4 Review of Systems Eyes Reports system reviewed and no additional complaints, except as docu ENT Reports system reviewed and no additional complaints, except as docu Cardiovascular Reports system reviewed and no additional complaints, except as docu Respiratory Reports system reviewed and no additional complaints, except as docu Gastrointestinal Reports system reviewed and no additional complaints, except as docu Genitourinary Reports system reviewed and no additional complaints, except as docu Musculoskeletal Reports abnormal gait, Reports back pain, Reports limited range of motion ( right leg), Reports numbness and Reports radiating pain into limb (right) Comments: Pain radiating down right leg Neurologic Reports system reviewed and no additional complaints, except as docu, Reports abnormal gait and Reports numbness Psychiatric Reports system reviewed and no additional complaints, except as docu Hematologic/Lymphatic Reports system reviewed and no additional complaints, except as docu Exam Const General: cooperative, healthy appearing, no acute distress and anxious (from the pain laying on left hip for comfort. ) Nutritional Appearance: thin Orientation: alert, awake and oriented x3 HENMT Head: normal to inspection and atraumatic Ears: hearing grossly normal bilaterally and external ears normal General nose exam: external nose normal and nares normal Mouth: oral mucosae normal, lip normal and tongue normal Teeth image: 2 1. missing. Tooth removed after fall. Eyes General: appearance normal, both eyes and all related structures Neck Neck: normal visual inspection, full ROM and supple Thyroid: nontender Resp Effort & Inspection: normal respiratory effort Cardio Rate: regular rate Back/Spine/Pelvis Back: No erythema, No ecchymosis, back tenderness (low back R>L) and No Medeiros- Macedo sign present Cervical Spine: normal cervical lordosis and cervical ROM normal Thoracic/Lumbar Spine: thoracic and lumbar spine normal to inspection, thoraco- lumbar ROM normal and straight leg raise positive Pelvis: no buttock ecchymosis, no buttock tenderness, no buttock swelling, sciatic notch tenderness on the right and tenderness over symphysis pubis Sacroiliac joints: on the right Sacrum: no ecchymosis Coccyx: no swelling Skin General skin exam: no rashes or lesions noted Neuro General: alert, awake, oriented x3 and moves all extremities Extrem General: normal to inspection, full ROM and normal capillary refill Right lower extremity: normal to inspection, full ROM (passivley with pain. Rsting position is laying on left side with leg flexed. ), normal capillary refill, no joint enlargement and hip/thigh Details: tenderness (Pain primarily down sciatic notch, but painful to touch to the entire leg. ) Location: of the hip (Right) Location: posteriorly and over the greater trochanter, of the proximal upper leg (pain) Location: medially, laterally, anteriorly, posteriorly , anteromedially, anterolaterally, posteromedially and posterolaterally and of the mid upper leg (pain) Location: medially, laterally, anteriorly, posteriorly , anteromedially, anterolaterally, posteromedially and posterolaterally Ankle/foot/toe images: 2 1. Mild brusing but otherwise normal foot and toe exam. Good CSMT. Course Vital Signs Temperature 36.7 C 06/16/18 09:02 Pulse 102 H 06/16/18 09:02 Respiratory Rate 14 06/16/18 09:02 Blood Pressure 107/81 06/16/18 09:02 Pulse Oximetry 100 06/16/18 09:02 Temperature 36.7 C 06/16/18 09:02 Temperature Source Temporal Artery Scan 06/16/18 09:02 Pulse 102 H 06/16/18 09:02 Respiratory Rate 14 06/16/18 09:02 Respiratory Effort 06/16/18 09:07 Blood Pressure 107/81 06/16/18 09:02 Blood Pressure Position Sitting 06/16/18 09:02 Pulse Oximetry 100 06/16/18 09:02 Oxygen Delivery Method Room Air 06/16/18 09:02 Oxygen Flow Rate 0 06/16/18 09:02 Pain Level 10 06/16/18 09:27
[2018-06-16] MEDS: oxyCODONE 5 mg/Acetaminophen 325 mg TAB 1 TAB PO (10:10)
--- NOTE | 2018-06-16 11:15 | DI.RAD_ITS ---
SYMPTOMS/DIAGNOSIS: LOW BACK AND RIGHT SCIATIC NOTCH PAIN DOWN RIGHT LEG S/P FALL A MONTH AGO LANDING ON RIGHT HIP/BACK, VERY PAINFUL KNEE FLEXION RIGHT KNEE: Three views were obtained. No fracture seen. RIGHT HIP AND PELVIS: Two views were obtained. There are minimal degenerative changes of the hip. No evidence of fracture or dislocation. LUMBOSACRAL SPINE: Six views were obtained. There is a mild right convex lumbar scoliosis. There is narrowing of the intervertebral disc spaces at L4-5 and L5-S1, consistent with disc degeneration. Mild hypertrophic spurring of the vertebral endplates and facet joints noted throughout the lumbar region. No evidence of acute fracture. CONCLUSION: No evidence of acute injury. Degenerative changes as described above.
[2018-06-16 11:33] VITALS: BP 114/73; PULSE 70; RESP 14; O2SAT 100
== END 2018-06-16 12:26 | disposition home or self-care (01) ==
PROVIDERS: Emergency Provider Nurse Practitioner Family; PCP Specialist/Technologist Athletic Trainer
DX: M54.41 Lumbago with sciatica, right side (principal); M54.16 Radiculopathy, lumbar region
CPT/HCPCS: 73562; 96372; 99284; 72110; 73502; J1885

== ENCOUNTER 2018-06-17 13:38 | Emergency (ER) | payer MEDICAID, SELFPAY ==
[2018-06-17 13:45] VITALS: BP 110/64; PULSE 87; RESP 16; TEMP 37; O2SAT 97
[2018-06-17] MEDS: Lidocaine/Epinephri/Tetracaine Topical Gel 3 ML (14:13)
--- NOTE | 2018-06-17 14:14 | ED.GENADUL_ITS ---
Discharge Plan Disposition Patient Disposition: HOME Condition: Good Discharge Details Chief Complaint: HeadInjury Clinical Impression: Head injury, Laceration of head Reason For Visit: SABINE Primary Care Provider: Rodrigo Davis ED Provider: Corey Potts Home Meds and New Rx's Prescriptions: New prednisone 20 mg tablet 40 mg PO DAILY Qty: 10 RF: 0 No Action acetaminophen [Tylenol Extra Strength] 500 MG tablet 1,000 mg PO PRN RF: 0 lamotrigine [Lamictal] 100 MG tablet 100 mg PO DAILY RF: 0 quetiapine [Seroquel] 50 MG tablet 50 mg PO BID PRNRF: 0 ibuprofen [Ibuprofen IB] 200 mg Tablet 400 mg PO PRN PRNRF: 0 nabumetone 750 mg Tablet 750 mg PO BID RF: 0 hydroxyzine HCl 50 mg Tablet 50 mg PO TID RF: 0 zolpidem [Ambien] 5 mg Tablet 5 mg PO HS RF: 0 diphenhydramine-acetaminophen [Tylenol PM Extra Strength] 25-500 mg Tablet 25 - 500 mg PO HS PRN PRNRF: 0 cyclobenzaprine 10 mg tablet 10 mg PO TID PRN (Reason: sciatica) Qty: 10 RF: 0 Discharge Instructions Instructions: Laceration (ED), Head Injury (ED) Referrals: [facility] Emergency Dept. [Outside] - 1 week (to have ramila removed. ) Medical Decision Making Will apply LET and close head laceration with ramila. CT head. Pt tolerated well closing of wound with ramila. Advised to keep clean and dry. Return in 5-7 days to have 2 ramila removed. F/U with PT. I will add prednisone for the sciatica. Advised to return if symptoms worsen. Pt preferred to leave. I will call if any abnormality is seen on CT. Normal CT. Imaging Data Radiologic Study: Imaging: CT Scan Radiologist's impression: v-rad: No acute intracranial findings. HPI General Date/Time Provider Initiated Documentation: 06/17/18 14:11 . Limitations to Documentation: no limitations . Information obtained by: patient . History of Present Illness 48 year old F presents to the emergency department with the chief complaint of fall, HPI Narrative: 48 y/o female here via ambulance with c/o head injury after fall. I saw her yesterday here in the ED and evaluated and treated her for sciatic type pain. [employer] she was walking up seven steps when her right leg gave out causing her to fall backwards down the steps and strike her head against the floor. Her witnessed the event. She did not have any LOC but noted bleeding from the head immediately after striking her head on the floor. EMS was called and she was placed in collar do to [facility]. She has had a few beers prior to the fall but no flexeril. Related Data Home Medications Medication Instructions Recorded Confirmed acetaminophen [Tylenol Extra 1,000 mg PO PRN 09/30/17 06/17/18 Strength] lamotrigine [Lamictal] 100 mg PO DAILY tab-cap 09/30/17 06/17/18 quetiapine [Seroquel] 50 mg PO BID PRN 12/17/17 06/17/18 ibuprofen [Ibuprofen IB] 400 mg PO PRN PRN 05/08/18 06/17/18 cyclobenzaprine 10 mg PO TID PRN #10 tab 06/16/18 06/17/18 diphenhydramine-acetaminophen 25 - 500 mg PO HS PRN PRN 06/16/18 06/17/18 [Tylenol PM Extra Strength] hydroxyzine HCl 50 mg PO TID 06/16/18 06/17/18 nabumetone 750 mg PO BID 06/16/18 06/17/18 zolpidem [Ambien] 5 mg PO HS 06/16/18 06/17/18 prednisone 40 mg PO DAILY #10 tab 06/17/18 Previous Rx's Medication Instructions Recorded cyclobenzaprine 10 mg PO TID PRN #10 tab 06/16/18 prednisone 40 mg PO DAILY #10 tab 06/17/18 Allergies Allergy/AdvReac Type Severity Reaction Status Date / Time codeine Allergy Intermediate HIVES Unverified 06/17/18 13:49 General Stated Complaint: HeadInjury NOLAN: 3 Review of Systems Eyes Reports system reviewed and no additional complaints, except as docu ENT Reports system reviewed and no additional complaints, except as docu Cardiovascular Reports system reviewed and no additional complaints, except as docu Respiratory Reports system reviewed and no additional complaints, except as docu Gastrointestinal Reports system reviewed and no additional complaints, except as docu Genitourinary Reports system reviewed and no additional complaints, except as docu Musculoskeletal Reports radiating pain into limb (right hip down the right leg) Integumentary/Breasts Reports other (head laceration) Neurologic Reports system reviewed and no additional complaints, except as docu Hematologic/Lymphatic Reports system reviewed and no additional complaints, except as docu Exam Const General: cooperative, comfortable, no acute distress and anxious Nutritional Appearance: thin Orientation: alert, awake and oriented x3 HENMT Head: contusion and laceration Head images: 2 1. .5cm linear laceration to occiput of heada. Slight gape but edges pull together. Clean with no f/b present. Bleeding controlled. Ears: hearing grossly normal bilaterally and external ears normal General nose exam: external nose normal and nares normal Face and sinus: normal facial exam Mouth: oral mucosae normal, lip normal and tongue normal Teeth and gingiva: dentition normal Eyes General: appearance normal, both eyes and all related structures Neck Neck: normal visual inspection, full ROM, no lymphadenopathy and other (Hard Collar removed. No cervical step off or tenderness. ) Chest Chest: normal inspection of the chest and normal palpation of entire chest wall Resp Effort & Inspection: normal respiratory effort Auscultation: clear to auscultation bilaterally Cardio Rate: tachycardic Rhythm: regular rhythm GI Palpation: soft and nontender Auscultation: normal bowel sounds Back/Spine/Pelvis Back: no CVA tenderness, CVA tenderness and No back tenderness Skin General skin exam: no rashes or lesions noted Neuro General: alert, awake and oriented x3 Cranial Nerves: PERRL Cognition: normal cognition Speech: speech normal Gait: other (slow and deliberate ) Extrem General: normal to inspection, full ROM and normal capillary refill Right lower extremity: full ROM (with pain along the sciatic notch), normal capillary refill, no joint enlargement and hip/thigh Details: tenderness Location: of the hip (sciatic notch) Location: laterally, anteriorly, posteriorly, anteromedially, anterolaterally, posteromedially, posterolaterally , over the greater trochanter and over the lesser trochanter and of the mid upper leg; no swelling Psych Appearance: grossly normal Speech and Movement: speech and movement normal Mood: congruent mood Affect: normal affect Course Vital Signs Temperature 37 C 06/17/18 13:45 Pulse 87 06/17/18 13:45 Respiratory Rate 16 06/17/18 13:45 Blood Pressure 110/64 06/17/18 13:45 Pulse Oximetry 97 06/17/18 13:45 Temperature 37 C 06/17/18 13:45 Temperature Source Skin 06/17/18 13:45 Pulse 87 06/17/18 13:45 Respiratory Rate 16 06/17/18 13:45 Respiratory Effort Non-Labored 06/17/18 14:02 Respiratory Depth Normal 06/17/18 14:02 Respiratory Pattern Normal 06/17/18 14:02 Blood Pressure 110/64 06/17/18 13:45 Blood Pressure Position Supine 06/17/18 13:45 Pulse Oximetry 97 06/17/18 13:45 Oxygen Delivery Method Room Air 06/17/18 13:45 Oxygen Flow Rate 0 06/17/18 13:45 Pain Level 7 06/17/18 13:45 Procedures Laceration Laceration 1: Site: scalp Side (If applicable): left Size (cm): 0.5 Description: linear Depth: simple, single layer Local Anesthetic: other anesthetic (LET) Amount of anesthesia used (mL): 0.3 Skin layer closed with: other (staple) Number of sutures: 2 Technique: simple, interrupted
--- NOTE | 2018-06-17 14:14 | DI.CT_ITS ---
SYMPTOMS/DIAGNOSIS: FALL DOWN STEPS, HEAD INJURY CRANIAL CT: There is no evidence of an intra or extra-axial hemorrhage. The nguyen/white matter differentiation is maintained throughout. There is no edema or fluid collection. The ventricles are normal. There is no skull fracture. The sinuses are normal. The mastoid air cells are normal. Note is made of a tiny superficial contusion/laceration in the superficial left parietal region posteriorly. SUMMARY: No acute intracranial abnormality.
[2018-06-17] MEDS: predniSONE 20 MG TAB 60 MG PO (14:40)
[2018-06-17 15:16] VITALS: BP 118/88; PULSE 104; RESP 18; O2SAT 98
--- NOTE | 2018-06-17 15:28 | DI.VRAD_ITS ---
EXAM: CT Head Without Intravenous Contrast EXAM DATE/TIME: 06/17/2018 2:15 PM CLINICAL HISTORY: 48 years old, female; Injury or trauma; Fall; Initial encounter; Blunt trauma (contusions or hematomas); Consciousness not specified; Injury date: 06/17/2018; Patient HX: Fell down seven steps TECHNIQUE: Axial computed tomography images of the head/brain without intravenous contrast. All CT scans at this facility use at least one of these dose optimization techniques: automated exposure control; mA and/or kV adjustment per patient size (includes targeted exams where dose is matched to clinical indication); or iterative reconstruction. Coronal and sagittal reformatted images were created and reviewed. COMPARISON: No relevant prior studies available. FINDINGS: Brain: Normal. No hemorrhage. No significant white matter disease. No edema. Ventricles: Normal. No ventriculomegaly. Bones/joints: Normal. No acute fracture. Sinuses: Normal as visualized. No acute sinusitis. Mastoid air cells: Normal as visualized. No mastoid effusion. Soft tissues: Tiny superficial contusion/laceration is seen in the superficial left parietal region posteriorly. IMPRESSION: No acute intracranial findings. Dictated and Authenticated by: Walter Viveros MD. Ordering:DENIES TOWNSEND MD
== END 2018-06-17 15:16 | disposition home or self-care (01) ==
PROVIDERS: Emergency Provider Nurse Practitioner Family; PCP Specialist/Technologist Athletic Trainer
DX: S09.90XA Unspecified injury of head, initial encounter (principal); S01.01XA Laceration without foreign body of scalp, initial encounter; W10.8XXA Fall (on) (from) other stairs and steps, initial encounter; M54.31 Sciatica, right side
CPT/HCPCS: 12001; 99284; 70450; 99283; J7512

== ENCOUNTER 2018-08-29 06:39 | Emergency (ER) | payer MEDICAID, SELFPAY ==
[2018-08-29 06:39] VITALS: BP 134/91; PULSE 94; RESP 20; TEMP 36.8; O2SAT 98
--- NOTE | 2018-08-29 06:42 | W.ED.GENAD ---
Discharge Plan Disposition Patient Disposition: HOME Condition: Stable Discharge Details Chief Complaint: FlankPain Clinical Impression: Right lumbar pain Reason For Visit: SABINE Primary Care Provider: Rodrigo Davis ED Provider: Bimal Rodriguez Home Meds and New Rx's Prescriptions: New dicyclomine 10 mg capsule 10 mg PO QID PRN (Reason: abdominal discomfort) Qty: 10 RF: 0 lorazepam [Ativan] 1 mg tablet 1 mg PO QHS PRN (Reason: sleep) Qty: 2 RF: 0 docusate sodium [Colace] 100 mg capsule 100 mg PO BID Qty: 10 RF: 0 Discharge Instructions Additional Instructions: Home to rest. Medications as prescribed. May use the prescribed Ativan, if needed for abdominal cramps and sleep. Small, frequent sips of fluids to maintain hydration. Return for any acute concerns Discharge Data Discharge Date/Time-TO BE ENTERED AT DEPARTURE: 08/29/18 10:07 Medical Decision Making <Corey Childs MD - Last Filed: 08/31/18 16:19> 48 yo female comes in with chief complaint of right lower back pain since 9am yesterdya. Denies fevers, chills, abdominal pain, has had nausea and vomit. Denies ivdu, fevers, falls or other trauma. On exam she localizes the pain to the right lateral lower back. No midline pain, no abdominal tenderness. She has no saddle anesthesia and no weakness on exam, 5/5 stregnth throughout the lower extremities, intact distal sensation and 2+ dp/pt pulses. Her pain could be from kidney stone, will obtain ct. She has no abdominal tenderness to suggest appendicitis or other surgical pathology. no findings to suggest sea vs cauda equina. Normal vascular exam so doubt dissection at this time pt's blood work is unremarkable, ua and ct still pending. Pt will be signed out pending imaging and UA results. Differential Diagnosis kidney stone, muscle spasm, sciatica, lumbar strain <Bimal Rodriguez MD - Last Filed: 08/29/18 10:23> Patient CT scan without findings other than notable fecal retention. Discussed with her increased bowel regimen at home, Bentyl, she stated that she has significant difficulty with sleep due to discomfort and I will provide her with 2 1 mg Ativan that she had good results from this in the ED. HPI <Corey Childs MD - Last Filed: 08/31/18 16:19> General Mode of arrival: ambulatory. Date/Time Provider Initiated Documentation: 08/29/18 06:42. Limitations to Documentation: no limitations. Information obtained by: patient. History of Present Illness 48 year old F presents to the emergency department with the chief complaint of nausea and vomit, right lower back pain, described as moderate and severe, with intensity rated at 7. Quality is described as aching and sharp, Patient reports no radiation. Patient started experiencing this day(s) (1) and it has been constant. No relieving factors improve symptom(s), No exacerbating factors reported . Patient notes no other symptoms.. Patient did receive the following treatments prior to arrival, none Related Data Home Medications Medication Instructions Recorded Confirmed dicyclomine 10 mg PO QID PRN #10 cap 08/29/18 docusate sodium [Colace] 100 mg PO BID #10 cap 08/29/18 lorazepam [Ativan] 1 mg PO QHS PRN #2 tab 08/29/18 Previous Rx's Medication Instructions Recorded dicyclomine 10 mg PO QID PRN #10 cap 08/29/18 docusate sodium [Colace] 100 mg PO BID #10 cap 08/29/18 lorazepam [Ativan] 1 mg PO QHS PRN #2 tab 08/29/18 Allergies Allergy/AdvReac Type Severity Reaction Status Date / Time codeine Allergy Intermediate HIVES Unverified 08/29/18 06:42 General NOLAN: 3 Review of Systems <Corey Childs MD - Last Filed: 08/31/18 16:19> Review of Systems All systems reviewed & are unremarkable except as noted in HPI and below Constitutional Denies chills and Denies fever(s) Cardiovascular Denies chest pain and Denies dyspnea Respiratory Denies cough and Denies dyspnea Gastrointestinal Denies abdominal pain, Denies nausea and Denies vomiting Genitourinary Denies dysuria Musculoskeletal Denies joint swelling Integumentary/Breasts Denies rash PFSH <Corey Childs MD - Last Filed: 08/31/18 16:19> Medical History Anxiety Bipolar disorder Smoker Surgical History section (10/27/13) Family History Mother Lung cancer Cancer of kidney Father Heart disease Myocardial infarction Grandfather Diabetes Social History Smoking/Tobacco Use Status: Current every day Exam <Corey Childs MD - Last Filed: 08/31/18 16:19> Const General: no acute distress Orientation: alert HENMT Head: normal to inspection Ears: external ears normal General nose exam: external nose normal Mouth: moist mucous membranes Eyes General: appearance normal, both eyes and all related structures Neck Neck: normal visual inspection Resp Effort & Inspection: normal respiratory effort and able to speak in complete sentences Cardio Rate: regular rate Back/Spine/Pelvis Back: no CVA tenderness Skin General skin exam: no rashes or lesions noted Neuro General: alert and oriented x3 Extrem General: normal to inspection Psych Mental Status: mental status grossly normal Sign Out <Corey Childs MD - Last Filed: 08/31/18 16:19> Sign Out Data: Sign Out Comment: follow up on lab results Last updated by Corey Childs MD at 08/29/18 07:41
--- NOTE | 2018-08-29 06:49 | DI.CT_ITS ---
SYMPTOM/DIAGNOSIS: RT FLANK PAIN RENAL COLIC CT: There are no prior comparison exams. The exam is mildly limited by patient motion, greater at the upper half of the scan. There is motion at the level of the kidneys. There is a question of mild prominence of the right collecting system compared to the left. No obstructing stones are seen. There is a tiny stone seen peripherally at the upper pole of the left kidney. There is mild left renal scarring. The urinary bladder is distended but unremarkable. The lung bases are clear. The liver, gallbladder, pancreas, spleen and adrenals are unremarkable. The appendix appears normal. The uterus and ovaries also appear within normal limits. There is no bowel dilatation or inflammatory change. There is moderate to increased amount of stool. IMPRESSION: The exam is mildly limited by patient motion. No urinary tract calculi are seen. There is increased stool but no evidence of inflammatory change.
[2018-08-29] MEDS: Normal Saline 1,000 ML 1000 ML IV (06:50)
--- NOTE | 2018-08-29 06:57 | ED.GENADUL_ITS ---
Discharge Plan Disposition Patient Disposition: HOME Condition: Stable Discharge Details Chief Complaint: FlankPain Clinical Impression: Right lumbar pain Reason For Visit: SABINE Primary Care Provider: Rodrigo Davis ED Provider: Bimal Rodriguez Home Meds and New Rx's Prescriptions: New dicyclomine 10 mg capsule 10 mg PO QID PRN (Reason: abdominal discomfort) Qty: 10 RF: 0 lorazepam [Ativan] 1 mg tablet 1 mg PO QHS PRN (Reason: sleep) Qty: 2 RF: 0 docusate sodium [Colace] 100 mg capsule 100 mg PO BID Qty: 10 RF: 0 Discharge Instructions Additional Instructions: Home to rest. Medications as prescribed. May use the prescribed Ativan, if needed for abdominal cramps and sleep. Small, frequent sips of fluids to maintain hydration. Return for any acute concerns Discharge Data Discharge Date/Time-TO BE ENTERED AT DEPARTURE: 08/29/18 10:07 Medical Decision Making <Corey Cihlds MD - Last Filed: 08/31/18 16:19> 48 yo female comes in with chief complaint of right lower back pain since 9am yesterdya. Denies fevers, chills, abdominal pain, has had nausea and vomit. Denies ivdu, fevers, falls or other trauma. On exam she localizes the pain to the right lateral lower back. No midline pain, no abdominal tenderness. She has no saddle anesthesia and no weakness on exam, 5/5 stregnth throughout the lower extremities, intact distal sensation and 2+ dp/pt pulses. Her pain could be from kidney stone, will obtain ct. She has no abdominal tenderness to suggest appendicitis or other surgical pathology. no findings to suggest sea vs cauda equina. Normal vascular exam so doubt dissection at this time pt's blood work is unremarkable, ua and ct still pending. Pt will be signed out pending imaging and UA results. Differential Diagnosis kidney stone, muscle spasm, sciatica, lumbar strain <Bimal Rodriguez MD - Last Filed: 08/29/18 10:23> Patient CT scan without findings other than notable fecal retention. Discussed with her increased bowel regimen at home, Bentyl, she stated that she has significant difficulty with sleep due to discomfort and I will provide her with 2 1 mg Ativan that she had good results from this in the ED. HPI <Corey Childs MD - Last Filed: 08/31/18 16:19> General Mode of arrival: ambulatory . Date/Time Provider Initiated Documentation: 08/29/18 06:42 . Limitations to Documentation: no limitations . Information obtained by: patient . History of Present Illness 48 year old F presents to the emergency department with the chief complaint of nausea and vomit, right lower back pain, described as moderate and severe, with intensity rated at 7. Quality is described as aching and sharp, Patient reports no radiation. Patient started experiencing this day(s) (1) and it has been constant. No relieving factors improve symptom(s), No exacerbating factors reported . Patient notes no other symptoms.. Patient did receive th e following treatments prior to arrival, none Related Data Home Medications Medication Instructions Recorded Confirmed dicyclomine 10 mg PO QID PRN #10 cap 08/29/18 docusate sodium [Colace] 100 mg PO BID #10 cap 08/29/18 lorazepam [Ativan] 1 mg PO QHS PRN #2 tab 08/29/18 Previous Rx's Medication Instructions Recorded dicyclomine 10 mg PO QID PRN #10 cap 08/29/18 docusate sodium [Colace] 100 mg PO BID #10 cap 08/29/18 lorazepam [Ativan] 1 mg PO QHS PRN #2 tab 08/29/18 Allergies Allergy/AdvReac Type Severity Reaction Status Date / Time codeine Allergy Intermediate HIVES Unverified 08/29/18 06:42 General NOLAN: 3 Review of Systems <Corey Childs MD - Last Filed: 08/31/18 16:19> Review of Systems All systems reviewed & are unremarkable except as noted in HPI and below Constitutional Denies chills and Denies fever(s) Cardiovascular Denies chest pain and Denies dyspnea Respiratory Denies cough and Denies dyspnea Gastrointestinal Denies abdominal pain, Denies nausea and Denies vomiting Genitourinary Denies dysuria Musculoskeletal Denies joint swelling Integumentary/Breasts Denies rash PFSH <Corey Childs MD - Last Filed: 08/31/18 16:19> Medical History Anxiety Bipolar disorder Smoker Surgical History section (10/27/13) Family History Mother Lung cancer Cancer of kidney Father Heart disease Myocardial infarction Grandfather Diabetes Social History Smoking/Tobacco Use Status: Current every day Exam <Corey Childs MD - Last Filed: 08/31/18 16:19> Const General: no acute distress Orientation: alert HENMT Head: normal to inspection Ears: external ears normal General nose exam: external nose normal Mouth: moist mucous membranes Eyes General: appearance normal, both eyes and all related structures Neck Neck: normal visual inspection Resp Effort & Inspection: normal respiratory effort and able to speak in complete sentences Cardio Rate: regular rate Back/Spine/Pelvis Back: no CVA tenderness Skin General skin exam: no rashes or lesions noted Neuro General: alert and oriented x3 Extrem General: normal to inspection Psych Mental Status: mental status grossly normal Sign Out <Corey Childs MD - Last Filed: 08/31/18 16:19> Sign Out Data: Sign Out Comment: follow up on lab results Last updated by Corey Childs MD at 08/29/18 07:41
[2018-08-29] MEDS: MORPHine 10 MG/ML VIAL 4 MG IVP ×2 (07:06→07:46)
[2018-08-29] MEDS: Ketorolac 15 MG/ML VIAL IVP (07:06)
[2018-08-29] MEDS: LORazepam 2 MG/ML VIAL 1 MG IVP (07:21)
[2018-08-29 07:25] LABS: Abs Immature Grans 0.01 k/cumm (0.0-0.09); Absolute Basophil Count 0.03 k/cumm (0.0-0.2); Absolute Eosinophil Count 0.09 k/cumm (0.0-0.7); Absolute Monocyte Count 0.48 k/cumm (0.11-0.7); Absolute Neutrophil Count 6.08 k/cumm (1.2-6.7); Basophils % 0.3; HCT 35.4 % (36.0-46.0); HGB 12.1 g/dL (12.0-15.5); Immature Grans % 0.1; Lymphocytes % 26.4; Mean Corp. HGB Concentration 34.2 g/dL (32.0-36.0); Mean Corpuscular Hemoglobin 31.8 pg (27.0-33.0); Mean Corpuscular Volume 92.9 fL (80-95); Mean Platelet Volume 9.5 fL (8.0-11.0); Monocytes % 5.3; Neutrophils % 66.9; Platelet Count 272 x1000/uL (130-400); RBC 3.81 m/cumm (4.00-5.20); RBC Distribution Width 12.8 % (11.7-14.6); White Blood Cell Count 9.09 k/cumm (4.4-10.8)
[2018-08-29 07:31] LABS: ALT 14 U/L (12-78); AST 11 U/L (15-37); Alkaline Phosphatase 63 U/L (46-116); Anion Gap 10.8 mmol/L (3-11); BUN 13 mg/dL (7-18); Bilirubin, Direct 0.16 mg/dL (0.00-0.20); Bilirubin, Total 0.6 mg/dL (0.2-1.0); CO2 22.2 mmol/L (21.0-32.0); CREATININE 0.61 mg/dL (0.55-1.02); Calcium 9.2 mg/dL (8.5-10.1); Chloride 105 mmol/L (98-107); Glucose 108 mg/dL (70-100); Lipase 74 U/L (73-393); Magnesium 1.7 mg/dL (1.8-2.4); Sodium 138 mmol/L (136-145); Total Protein 6.9 g/dL (6.4-8.2)
[2018-08-29 07:36] LABS: Bilirubin Negative (Negative); Blood Trace-intact (Negative); Clarity Sl Cloudy; Glucose Negative (Negative); Ketones Negative (Negative); Leukocyte Esterase Negative (Negative); Nitrite Negative (Negative); Specific Gravity <= 1.005 (1.005-1.025); Urobilinogen 0.2 EU/dL (Up TO 0.2); pH 5.5 (5-8)
[2018-08-29] MEDS: Normal Saline Flush 10 ML SYR IVP (07:47)
[2018-08-29 07:59] LABS: Bacteria Rare HPF (Negative); C & S Indicated? No; Casts Negative LPF (Negative); Crystals Negative HPF (Negative); Epithelial Cells Moderate HPF (Negative); Mucus Negative (Negative); Other Cells Negative (Negative); RBC 0-2 (0-2); WBC 0-2 HPF (0-5)
[2018-08-29 08:06] VITALS: BP 131/79; PULSE 86; RESP 14; O2SAT 95
[2018-08-29 09:43] VITALS: BP 118/74; PULSE 72; RESP 18; TEMP 37.1; O2SAT 97
== END 2018-08-29 10:07 | disposition home or self-care (01) ==
PROVIDERS: Emergency Medicine; Emergency Provider Emergency Medicine; PCP Specialist/Technologist Athletic Trainer
DX: M54.5 Low back pain (principal); R11.2 Nausea with vomiting, unspecified
CPT/HCPCS: 36415; 80053; 80076; 83690; 96361; 96374; 96375; 99284; 74176; 81003; 81015; 83735; 85025; J1885; J2060; J2270

== ENCOUNTER 2019-03-30 10:04 | Emergency (ER) | payer MEDICAID, SELFPAY ==
[2019-03-30 10:09] VITALS: BP 140/122; PULSE 91; RESP 18; TEMP 36.8; O2SAT 98
[2019-03-30] MEDS: Acetaminophen 500 MG TAB 1000 MG PO (10:59)
[2019-03-30 11:36] LABS: Absolute Basophil Count 0.04 k/cumm (0.0-0.2); Absolute Lymphocyte Count 2.54 k/cumm (1.2-3.4); Absolute Monocyte Count 0.38 k/cumm (0.11-0.7); Absolute Neutrophil Count 2.85 k/cumm (1.2-6.7); Basophils % 0.7; Eosinophils % 3.3; HCT 41.7 % (36.0-46.0); Lymphocytes % 42.3; Mean Corp. HGB Concentration 33.6 g/dL (32.0-36.0); Mean Corpuscular Hemoglobin 31.4 pg (27.0-33.0); Mean Corpuscular Volume 93.5 fL (80-95); Monocytes % 6.3; Neutrophils % 47.4; Platelet Count 256 x1000/uL (130-400); RBC 4.46 m/cumm (4.00-5.20); White Blood Cell Count 6.01 k/cumm (4.4-10.8)
[2019-03-30 11:47] LABS: ALT 26 U/L (14-59); AST 21 U/L (15-37); Albumin 4.2 g/dL (3.4-5.0); Alkaline Phosphatase 96 U/L (46-116); Anion Gap 9.1 mmol/L (3-11); BUN 9 mg/dL (7-18); Bilirubin, Total 0.4 mg/dL (0.2-1.0); CO2 24.9 mmol/L (21.0-32.0); CREATININE 0.61 mg/dL (0.55-1.02); Chloride 105 mmol/L (98-107); Glucose 85 mg/dL (70-100); INR 0.9 (0.9-1.1); PTT Activated 23.8 sec (21.0-31.4); Potassium 3.7 mmol/L (3.5-5.1); Prothrombin Time 9.3 sec (9.3-11.0); Sodium 139 mmol/L (136-145); Total Protein 7.7 g/dL (6.4-8.2)
[2019-03-30 11:51] LABS: Bilirubin Negative (Negative); Blood Negative (Negative); Clarity Clear (Clear); Glucose Negative (Negative); Ketones Negative (Negative); Leukocyte Esterase Negative (Negative); Nitrite Negative (Negative); Urobilinogen 0.2 EU/dL (Up TO 0.2); pH 5.5 (5-8)
--- NOTE | 2019-03-30 12:10 | DI.CT_ITS ---
SYMPTOMS/DIAGNOSIS: CHEST PAIN AND NECK PAIN S/P FALL CT OF THE CERVICAL SPINE: There is no evidence of fracture. The alignment appears normal. There are mild degenerative disc changes at C4-5 and C5-6. There is no prevertebral soft tissue swelling. No pneumothorax is seen at the lung apices. IMPRESSION: No acute abnormality. CT OF THE CHEST, ABDOMEN AND PELVIS: Comparison is made with abdominal and pelvic CT of August,. CHEST CT: The heart size is normal. The aorta and pulmonary arteries appear intact. No pleural or pericardial effusions are seen. The lungs are clear. There is no evidence of pneumothorax or infiltrate. There is a nondisplaced fracture of the right 11th rib. The spine and sternum appear intact. IMPRESSION: Nondisplaced fracture of the right 11th rib. ABDOMEN AND PELVIS: The liver, spleen, pancreas, gallbladder and adrenals appear intact. There is scarring at the upper pole of the left kidney and a tiny nonobstructing stone. The right kidney is unremarkable. The aorta is normal in diameter. There is no free air or free fluid. The appendix appears normal. There is no bowel dilatation. The urinary bladder is nearly empty but unremarkable. The uterus is unremarkable. No spine or pelvic fractures are seen. IMPRESSION: Negative CT of the abdomen and pelvis.
--- NOTE | 2019-03-30 13:18 | W.ED.GENAD ---
Discharge Plan Disposition Patient Disposition: HOME Condition: Stable Discharge Details Chief Complaint: Chest/Rib Clinical Impression: Fracture of rib Primary Care Provider: Emi Akbar V ED Provider: Shelby Austin Home Meds and New Rx's Prescriptions: New cyclobenzaprine 10 mg tablet 10 mg PO TID PRN (Reason: muscle spasm) Qty: 10 RF: 0 lidocaine [Lidoderm] 5 % adhesive patch,medicated 1 patch TP DAILY Qty: 30 RF: 0 Continued acetaminophen 500 mg Tablet 1,000 mg PO Q4H PRNRF: 0 ibuprofen 400 mg Tablet 400 mg PO Q6H RF: 0 Discharge Instructions Additional Instructions: Deep breathing exercises every 2 hours as discussed. Ice to the chest wall initially then may initiate heat to the chest wall for comfort. Use patches as discussed. Use muscle relaxant as prescribed if needed. This will cause sedation. Do not drive, drink, care to children while taking this medication. make follow-up appoint with your primary care doctor for reevaluation. Return for any alarming symptoms, worsening, concerns or if needed sooner Medical Decision Making Patient presents after a fall 6 days ago. Patient complaining of mild neck pain with range of motion, has tenderness through the neck and back. Patient also has right chest wall tenderness with palpation, pain with deep breathing. Patient complaining of abdominal discomfort doubling her over in pain. On exam has mild diffuse abdominal tenderness. No obvious distention or bruising noted on either the chest wall or the abdomen. Given patient's presentation in conjunction with her mechanism of injury in which she fell over the banister of the stairs falling approximately 4 feet onto a dresser I do feels appropriate to scan her neck chest and abdomen including pelvis. Patient denies headache or dizziness. No unsteady balance. No concern of head injury at this time. Ultimately patient's imaging studies are unremarkable with the exception of a nondisplaced right rib fracture. Counseled regarding appropriate care management. Only concern for which I have prompted prompt reevaluation with primary care doctor is patient did complain of mild left arm tingling specifically in the forearm and the hand after her fall. Her CT is unremarkable of the neck for any sign of fracture. Patient does not want to stay for MRI at this time I also did discuss with this with my attending who does not feel it is necessary to stay for MRI at this time. Patient counseled regarding her injury and recommended prompt follow-up with primary care doctor for any persistence of symptoms. Patient declines any narcotic treatment would prefer muscle relaxant. Lidoderm patches prescribed. Patient agrees to plan of care. Discussed deep breathing exercises to prevent any atelectasis. Patient reports her understanding. Encouraged return for any alarming or worsening symptoms. HPI General Date/Time Provider Initiated Documentation: 03/30/19 10:13. HPI Narrative: Patient presents for a fall which occurred 6 days ago. Patient reports she was carrying a very full basket of laundry downstairs that also had laundry on them. Patient ultimately fell over the banister landing on a Hutch on her right side. Patient with persistent right-sided rib pain since her fall. Patient denies headache, dizziness, nausea, vomiting. Patient denies obvious neck pain. Mild back pain present. Patient primarily concerned with the pain she experiences with deep breathing, range of motion or palpation of the right side of her chest. Patient does report mild abdominal pain since the fall. Patient does report occasionally pain that doubles her over in her abdomen. No associated hematuria or bowel changes. Denies obvious distention. Denies any dizziness, weakness, feeling of syncope. Patient has been eating without difficulty. No other concerns or complaints at this time. Related Data Home Medications Medication Instructions Recorded Confirmed acetaminophen 1,000 mg PO Q4H PRN 03/30/19 03/30/19 cyclobenzaprine 10 mg PO TID PRN #10 tab 03/30/19 ibuprofen 400 mg PO Q6H 03/30/19 03/30/19 lidocaine [Lidoderm] 1 patch TP DAILY #30 each 03/30/19 Previous Rx's Medication Instructions Recorded cyclobenzaprine 10 mg PO TID PRN #10 tab 03/30/19 lidocaine [Lidoderm] 1 patch TP DAILY #30 each 03/30/19 Allergies Allergy/AdvReac Type Severity Reaction Status Date / Time codeine Allergy Intermediate HIVES Unverified 03/30/19 10:12 General Stated Complaint: Chest/Rib NOLAN: 3 Review of Systems Review of Systems CONSTITUTIONAL: The patient denies fevers, chills. EYES: Denies vision changes, blurry vision, or eye pain. ENT: Denies hearing changes, tinnitus, vertigo, sore throat. CARDIAC: Denies chest pain, SOB. RESPIRATORY: Denies cough, sputum. Painful breathing. GASTROINTESTINAL: Mild abdominal pain. No changes in bowel, vomiting or nausea. GENITOURINARY: Denies dysuria, or frequency of urination. MUSCULOSKELETAL: Denies Joint pain, gait changes. NEUROLOGIC: Denies headaches, Denies focal weakness. Denies numbness. INTEGUMENT: Denies rashes. PSYCHIATRIC: Denies behavior changes. Denies anxiety or depression. ENDOCRINOLOGY: Denies fatigue. PSYCHIATRY: Denies depression, agitation or anxiety [facility] Social History Smoking/Tobacco Use Status: Current-Occasional Tobacco Type: cigarettes Drug use: Never Do you feel safe in your relationship?: Yes Exam Narrative Exam Narrative: CONST: Healthy appearing patient, uncomfortable. Well hydrated. Alert and alert. HENMT: Head nomocephalic, normal to inspection. Atraumatic. Hearing grossly normal. External ear canal no erythema or swelling. TM normal bilaterally. Nose normal to inspection. No rhinnorhea. Normal facial exam. Oral mucosa normal. Tounge normal. Dentition normal. Normal posterior oropharynx. Uvula midline. EYES: General normal appearance. Alignment normal. Eyelids normal. Conjunctiva normal. Sclera normal. PERRL. NECK: Normal visual inspection. FROM. No lymphadenopathy. Trachea midline. Mild midline tenderness. Pain with rotational range of motion to the right CHEST: No obvious bruising. Patient with obvious tenderness noted with palpation to the right lateral chest wall. And with palpation of anterior and posterior chest wall on the right. No obvious crepitus or flail chest. RESP: Normal respiratory effort. Speaking full sentences. No cough. No wheezing. No retractions. Clear to auscaltation. Breath sound equal and present bilaterally. CARDIO: No JVD. Normal PMI. Regular Rate. Regular Rhythm. Normal peripheral pulses. GI: mild pain with palpation of diffuse abdomen. No distension. Soft. Bowel sounds present in all 4 quadrants. No rebound. No gaurding. MUSCULOSKELETAL: Normal Gait. FROM of all extremities. Distal neurovascularly intact. Sensation intact distally. SKIN: Normal. Dry. No rashes. NEURO: Alert and awake. Speech clear. PSYCH: Normal affect. Cooperative. Back/Spine/Pelvis Back: No no CVA tenderness and No CVA tenderness Cervical Spine: cervical spinal tenderness (mild) Thoracic/Lumbar Spine: thoracic spinal tenderness (mild) and No lumbar spinal tenderness Extrem Right upper extremity: normal to inspection, full ROM and hand Left upper extremity: normal to inspection, full ROM and hand (2 point discrimination present throughout hand) Right lower extremity: normal to inspection Left lower extremity: normal to inspection Course Vital Signs Temperature 36.8 C 03/30/19 10:09 Pulse 91 H 03/30/19 10:09 Respiratory Rate 18 03/30/19 10:09 Blood Pressure 140/122 H 03/30/19 10:09 Pulse Oximetry 98 03/30/19 10:09 Temperature 36.8 C 03/30/19 10:09 Temperature Source Skin 03/30/19 10:09 Pulse 91 H 03/30/19 10:09 Respiratory Rate 18 03/30/19 10:09 Respiratory Effort 03/30/19 10:32 Respiratory Depth Normal 03/30/19 10:32 Respiratory Pattern Normal 03/30/19 10:32 Blood Pressure 140/122 H 03/30/19 10:09 Pulse Oximetry 98 03/30/19 10:09 Oxygen Delivery Method Room Air 03/30/19 10:09 Oxygen Flow Rate 0 03/30/19 10:09 Pain Level 8 03/30/19 10:09 Lab/Test Results Lab/Test Results: Laboratory Tests Range/Units 03/30/19 03/30/19 03/30/19 11:10 11:23 11:23 WBC (4.4-10.8) k/cumm 6.01 RBC (4.00-5.20) m/cumm 4.46 Hgb (12.0-15.5) g/dL 14.0 Hct (36.0-46.0) % 41.7 MCV (80-95) fL 93.5 MCH (27.0-33.0) pg 31.4 MCHC (32.0-36.0) g/dL 33.6 RDW (11.7-14.6) % 13.0 Plt Count (130-400) x1000/uL 256 MPV (8.0-11.0) fL 9.0 Immature Gran % 0.0 Neutrophils % 47.4 Lymphocytes % 42.3 Monocytes % 6.3 Eosinophils % 3.3 Basophils % 0.7 Absolute Neutrophils (1.2-6.7) k/cumm 2.85 Absolute Lymphocytes (1.2-3.4) k/cumm 2.54 Absolute Monocytes (0.11-0.7) k/cumm 0.38 Absolute Eosinophils (0.0-0.7) k/cumm 0.20 Absolute Basophils (0.0-0.2) k/cumm 0.04 PT (9.3-11.0) sec INR (0.9-1.1) APTT (21.0-31.4) sec Sodium (136-145) mmol/L 139 Potassium (3.5-5.1) mmol/L 3.7 Chloride (98-107) mmol/L 105 Carbon Dioxide (21.0-32.0) mmol/L 24.9 Anion Gap (3-11) mmol/L 9.1 BUN (7-18) mg/dL 9 Creatinine (0.55-1.02) mg/dL 0.61 Estimated GFR/1.73 m2 (mL/min/1.73m2) >= 60.00 Glucose (70-100) mg/dL 85 Calcium (8.5-10.1) mg/dL 9.0 Total Bilirubin (0.2-1.0) mg/dL 0.4 AST (15-37) U/L 21 ALT (14-59) U/L 26 Alkaline Phosphatase (46-116) U/L 96 Total Protein (6.4-8.2) g/dL 7.7 Albumin (3.4-5.0) g/dL 4.2 Urine Color (Yellow) Yellow Urine Clarity (Clear) Clear Urine pH (5-8) 5.5 Ur Specific [place] (1.005-1.025) 1.010 Urine Protein (Negative) mg/dL Negative Urine Ketones (Negative) mg/dL Negative Urine Blood (Negative) Negative Urine Nitrite (Negative) Negative Urine Bilirubin (Negative) Negative Urine Urobilinogen (Up TO 0.2) EU/dL 0.2 Ur Leukocyte Esterase (Negative) Negative Urine Glucose (Negative) mg/dL Negative Range/Units 03/30/19 11:23 WBC (4.4-10.8) k/cumm RBC (4.00-5.20) m/cumm Hgb (12.0-15.5) g/dL Hct (36.0-46.0) % MCV (80-95) fL MCH (27.0-33.0) pg MCHC (32.0-36.0) g/dL RDW (11.7-14.6) % Plt Count (130-400) x1000/uL MPV (8.0-11.0) fL Immature Gran % Neutrophils % Lymphocytes % Monocytes % Eosinophils % Basophils % Absolute Neutrophils (1.2-6.7) k/cumm Absolute Lymphocytes (1.2-3.4) k/cumm Absolute Monocytes (0.11-0.7) k/cumm Absolute Eosinophils (0.0-0.7) k/cumm Absolute Basophils (0.0-0.2) k/cumm PT (9.3-11.0) sec 9.3 INR (0.9-1.1) 0.9 APTT (21.0-31.4) sec 23.8 Sodium (136-145) mmol/L Potassium (3.5-5.1) mmol/L Chloride (98-107) mmol/L Carbon Dioxide (21.0-32.0) mmol/L Anion Gap (3-11) mmol/L BUN (7-18) mg/dL Creatinine (0.55-1.02) mg/dL Estimated GFR/1.73 m2 (mL/min/1.73m2) Glucose (70-100) mg/dL Calcium (8.5-10.1) mg/dL Total Bilirubin (0.2-1.0) mg/dL AST (15-37) U/L ALT (14-59) U/L Alkaline Phosphatase (46-116) U/L Total Protein (6.4-8.2) g/dL Albumin (3.4-5.0) g/dL Urine Color (Yellow) Urine Clarity (Clear) Urine pH (5-8) Ur Specific [place] (1.005-1.025) Urine Protein (Negative) mg/dL Urine Ketones (Negative) mg/dL Urine Blood (Negative) Urine Nitrite (Negative) Urine Bilirubin (Negative) Urine Urobilinogen (Up TO 0.2) EU/dL Ur Leukocyte Esterase (Negative) Urine Glucose (Negative) mg/dL
== END 2019-03-30 13:23 | disposition home or self-care (01) ==
PROVIDERS: Emergency Provider Physician Assistant; PCP Family Medicine
DX: S22.31XA Fracture of one rib, right side, initial encounter for closed fracture (principal); M54.2 Cervicalgia; W01.0XXA Fall on same level from slipping, tripping and stumbling without subsequent striking against object, initial encounter
CPT/HCPCS: 36415; 74177; 80053; 99285; 71260; 72125; 81003; 85025; 85610; 85730; 99284

== ENCOUNTER 2019-04-11 18:14 | Emergency (ER) | payer MEDICAID, SELFPAY ==
[2019-04-11 18:28] VITALS: BP 131/80; PULSE 94; RESP 18; TEMP 36.3; O2SAT 98
--- NOTE | 2019-04-11 19:00 | W.ED.GENAD ---
Discharge Plan Disposition Patient Disposition: AGAINST MEDICAL ADVICE Discharge Details Chief Complaint: Orthopedic Clinical Impression: Crush injury to finger, Finger laceration Primary Care Provider: Emi Akbar V ED Provider: Elijah Phelps Home Meds and New Rx's Prescriptions: No Action acetaminophen 500 mg Tablet 1,000 mg PO Q4H PRNRF: 0 ibuprofen 400 mg Tablet 400 mg PO Q6H RF: 0 Discharge Instructions Instructions: Finger Laceration (ED), Against Medical Advice (ED) Additional Instructions: Please contact your primary care physician to arrange follow-up. Return to the ER at any time for work-up and treatment as recommended. Referrals: Emi Akbar MD [Primary Care Provider] - Discharge Data Discharge Date/Time-TO BE ENTERED AT DEPARTURE: 04/11/19 19:12 Medical Decision Making 49-year-old female here with crush injury to her right fourth digit distally. Patient is neurovascular intact distally. No active bleeding from 2 superficial lacerations. I recommended x-ray to assess for bony injury and foreign body. Patient declines x-ray. I recommended wound irrigation and cleansing. Patient declines this treatment. Patient notes tetanus is up-to-date. I had a discussion with the patient about my diagnostic/treatment plan. Patient declines plan and wishes to leave against medical advise. I reiterated my concerns to the patient and explained the risks of leaving prior to completion of workup and treatment. I specifically emphasized the possibility of life-threatening or lifestyle modifying disease that would not be appropriately treated if they leave. Patient verbalized understanding of my concerns and the potential for life threatening or lifestyle modifying disease. Patient has capacity to make informed decision. I again explained my concerns and urged the patient to stay for treatment as outlined. Patient continued to refuse. I then discussed potential less ideal alternatives to diagnostic/treatment plan as outlines and patient refused. I recommended that the patient follow-up with primary care physician JOSÉ MIGUEL or return to the Emergency Department at any time for further treatment. HPI General Mode of arrival: ambulatory. Date/Time Provider Initiated Documentation: 04/11/19 18:50. Limitations to Documentation: no limitations. Information obtained by: patient. HPI Narrative: 49-year-old female here with crush injury to her right fourth digit. Patient notes she crushed her finger just prior to arrival. Wound was initially bleeding. Bleeding has stopped with dressing and compression. No associated numbness or weakness of the digit. Patient notes injury is mild. Related Data Home Medications Medication Instructions Recorded Confirmed acetaminophen 1,000 mg PO Q4H PRN 03/30/19 04/11/19 ibuprofen 400 mg PO Q6H 03/30/19 04/11/19 Allergies Allergy/AdvReac Type Severity Reaction Status Date / Time codeine Allergy Intermediate HIVES Unverified 04/11/19 18:34 General Stated Complaint: Orthopedic NOLAN: 3 Review of Systems Integumentary/Breasts Skin/Breast: Reports as per HPI Neurologic Neurologic: Reports as per HPI [facility] Social History Smoking/Tobacco Use Status: Current-Occasional Tobacco Type: cigarettes Alcohol Intake: current Alcohol Intake frequency: a few times a month Alcohol type: beer Drug use: Never Do you feel safe at home: Yes Do you feel safe in your relationship?: Yes Exam Const Orientation: alert, awake and oriented x3 Skin Trauma: laceration (distal rt 4th with no bleeding) Extrem Right upper extremity: hand (distal rt 4th motor and sensation intact) Details: tenderness Location: of the 4th digit Location: at the distal phalanx and laceration (see skin) Course Vital Signs Vital signs: Vital Signs Temperature 36.3 C L 04/11/19 18:28 Pulse 94 H 04/11/19 18:28 Respiratory Rate 18 04/11/19 18:28 Blood Pressure 131/80 04/11/19 18:28 Pulse Oximetry 98 04/11/19 18:28 Temperature 36.3 C L 04/11/19 18:28 Temperature Source Skin 04/11/19 18:28 Pulse 94 H 04/11/19 18:28 Respiratory Rate 18 04/11/19 18:28 Respiratory Effort 04/11/19 18:34 Blood Pressure 131/80 04/11/19 18:28 Blood Pressure Position Sitting 04/11/19 18:28 Pulse Oximetry 98 04/11/19 18:28 Oxygen Delivery Method Room Air 04/11/19 18:28 Oxygen Flow Rate 0 04/11/19 18:28 Pain Level 3 04/11/19 18:28
== END 2019-04-11 19:12 | disposition left against medical advice (07) ==
LOC: ER 19:09
PROVIDERS: Emergency Provider Student in an Organized Health Care Education/Training Program; PCP Family Medicine
DX: S61.214A Laceration without foreign body of right ring finger without damage to nail, initial encounter (principal); S67.194A Crushing injury of right ring finger, initial encounter; W23.0XXA Caught, crushed, jammed, or pinched between moving objects, initial encounter; Z53.29 Procedure and treatment not carried out because of patient's decision for other reasons
CPT/HCPCS: 99282